=== PATIENT | female | born 1965 | race Two or more races ===

== ENCOUNTER 2024-12-13 16:41 | Emergency (ER) | payer OTHER ==
[~2024-12-13] VITALS: Ht 160 cm; Wt 67.6 kg
[~2024-12-13 16:41] MED LIST: CELEBREX100 MG PO; PREDNISONE5 MG/DOSE- PO; SKELAXIN800 MG PO
[2024-12-13] MEDS ORDERED: AVAPRO300 MG (19:19)
[2024-12-13] MEDS ORDERED: AMLODIPINE BESYL5 MG (19:19)
[2024-12-13] MEDS ORDERED: METOPROLOL SUCC25 MG (19:19)
[2024-12-13] MEDS ORDERED: SIMVASTATIN (19:19)
[2024-12-13] MEDS ORDERED: METFORMIN HCL1000 M2 (19:19)
[2024-12-13] MEDS ORDERED: FAMOTIDINE/PF 20 MG in 0.9 % SODIUM CHLORIDE 8 ML IV PUSH STA (19:35)
[2024-12-13] MEDS ORDERED: ONDANSETRON HCL 2 MG/ML VIAL IV ONE (19:45)
[2024-12-13] MEDS ORDERED: MECLIZINE HCL 25 MG TABLET PO ONE ×2 (19:45→19:56)
[2024-12-13] MEDS ORDERED: ONDANSETRON HCL 2 MG/ML VIAL ONE (19:56)
[2024-12-13] MEDS ORDERED: FAMOTIDINE/PF 20 MG/2 ML VIAL ONE (19:57)
[2024-12-13 20:13] LABS: HEMATOCRIT 38.4 % (36.0-45.00); HEMOGLOBIN 12.8 g/dL (12.0-15.00); MEAN CELL VOLUME 77.7 fL (80.00-100.00); MEAN CORPUSCULAR HGB CONC 33.4 g/dl (32.0-36.0); PLATELET COUNT 171 K/uL (150-450); RED BLOOD COUNT 4.93 M/uL (4.00-6.00); RED CELL DISTRIBUTION WIDTH 13.5 % (11.5-14.5)
[2024-12-13 20:37] LABS: ALBUMIN 3.9 gm/dL (3.4-5.0); BILIRUBIN TOTAL 1.29 mg/dL (0.3-1.2); CALCIUM 9.3 mg/dL (8.5-10.1); CREATININE SERUM 0.79 mg/dL (0.55-1.02); GFR 74.23; GLOBULINA 3.5 G/DL (2.4-3.5); POTASSIUM 3.82 mEq/L (3.5-5.1); TOTAL PROTEIN 7.4 gm/dL (6.4-8.2)
[2024-12-13] MEDS ORDERED: MECLIZINE HCL25 MG PO (22:53)
== END 2024-12-13 23:16 | disposition home or self-care (01) ==
LOC: ER 16:43
PROVIDERS: General Practice
DX: R42 Dizziness and giddiness (principal); I10 Essential (primary) hypertension